=== PATIENT | male | born 1970 | race Caucasian/White ===

== ENCOUNTER 2020-03-30 12:49 | Outpatient (CLI) | payer OTHER, SELFPAY ==
[2020-04-01 12:24] LABS: SARS-CoV-2 RNA PCR Negative
== END 2020-03-30 12:50 | disposition home or self-care (01) ==
PROVIDERS: PCP Physician Assistant; Visit Provider Physician Assistant
DX: Z20.828 Contact with and (suspected) exposure to other viral communicable diseases (principal)
CPT/HCPCS: 87635; C9803; U0003